=== PATIENT | male | born 1985 | race Caucasian/White ===

== ENCOUNTER 2020-07-01 15:32 | Emergency (ER) | payer OTHER ==
[~2020-07-01] VITALS: Ht 175.3 cm; Wt 83.0 kg
[2020-07-01 15:42] VITALS: BP 138/92; Ht 175.3 cm; Wt 83.0 kg
== END 2020-07-01 17:19 | disposition home or self-care (01) ==
LOC: ED 15:32
DX: K59.00 Constipation, unspecified (principal)